=== PATIENT | male | born 1960 | race Hispanic/Latino ===

== ENCOUNTER 2018-02-17 10:11 | Emergency (ER) | payer BC, OTHER, SELFPAY ==
[2018-02-17] MEDS ORDERED: DOXYCYCLINE 100 MG CAP PO ONE (10:53)
[2018-02-17] MEDS ORDERED: LIDOCAINE 1% MPF 5 ML VIAL ONE (10:53)
--- NOTE | 2018-02-17 11:20 | ER ---
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 aj Transition of care: patient was not received from another setting of care. Onset of symptoms was February 17, 2018. Risk Assessment: Do you want to hurt yourself or someone else? Patient reports no desire to harm self or others. Initial Sepsis Screen: Does the patient meet any 2 criteria? No. Patient's initial sepsis screen is negative. Does the patient have a suspected source of infection? No. Patient's initial sepsis screen is negative. Care prior to arrival: None. 10:25 Method Of Arrival: Ambulatory aj 10:25 Acuity: HOPE 4 aj Triage Assessment: 10:26 General: Appears in no apparent distress. comfortable, Behavior is calm, cooperative, aj appropriate for age. Pain: Denies pain. Neuro: Level of Consciousness is awake, alert, obeys commands, Oriented to person, place, time, situation, Appropriate for age. Respiratory: Airway is patent Respiratory effort is even, unlabored, Respiratory pattern is regular, symmetrical. Derm: Skin is intact, is healthy with good turgor, Skin is pink, warm \T\ dry. normal. Injury Description: Foreign body is located palmar aspect of middle phalanx of right index finger. 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 - Social history:: Smoking status: Patient/guardian denies using tobacco. - Ebola Screening: : Patient negative for fever greater than or equal to 101.5 degrees Fahrenheit, and additional compatible Ebola Virus Disease symptoms Patient denies exposure to infectious person Patient denies travel to an Ebola-affected area in the 21 days before illness onset No symptoms or risks identified at this time. Screenin:30 Abuse screen: Denies threats or abuse. Nutritional screening: No deficits noted. rb1 Tuberculosis screening: No symptoms or risk factors identified. Fall Risk None identified. Assessment: 10:30 General: Appears in no apparent distress. comfortable, Behavior is calm, cooperative. rb1 Pain: Complains of pain in palmar aspect of middle phalanx of right index finger Pain currently is 3 out of 10 on a pain scale. Pain began 0900 this morning. Neuro: Level of Consciousness is awake, alert, obeys commands, Oriented to person, place, time, situation. Cardiovascular: Capillary refill < 3 seconds is brisk in bilateral fingers. Respiratory: Airway is patent Respiratory effort is even, unlabored, Respiratory pattern is regular, symmetrical. GI: No signs and/or symptoms were reported involving the gastrointestinal system. : No signs and/or symptoms were reported regarding the genitourinary system. Derm: Skin is pink, warm \T\ dry. Fish hook stuck in the right index finger. Musculoskeletal: Range of motion: intact in all extremities. 11:30 Reassessment: Patient appears in no apparent distress at this time. Patient and/or rb1 family updated on plan of care and expected duration. Pain level reassessed. Patient is alert, oriented x 3, equal unlabored respirations, skin warm/dry/pink. Vital Signs: 10:26 BP 148 / 95; Pulse 103; Resp 20; Temp 98.0; Pulse Ox 96% on R/A; Weight 113.4 kg; aj Height 6 ft. 0 in. (182.88 cm); 11:20 BP 146 / 91; Pulse 92; Resp 18; Pulse Ox 100% on R/A; rb1 10:26 Body Mass Index 33.91 (113.40 kg, 182.88 cm) aj ED Course: 10:14 Patient arrived in ED. as 10:14 Ted Ruiz MD is Private Physician. as 10:25 Triage completed. aj 10:27 Arm band placed on left wrist. Patient placed in an exam room. aj 10:28 [facility]C [facility] snw 10:28 Franck Amador MD is Attending Physician. snw 10:30 Patient has correct armband on for positive identification. Bed in low position. Call rb1 light in reach. Side rails up X 1. Pulse ox on. NIBP on. 10:32 Whitley Gonsales, RN is Primary Nurse. rb1 11:19 Ted Ruiz MD is Referral Physician. snw 11:45 No provider procedures requiring assistance completed. Patient did not have IV access rb1 during this emergency room visit. 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 Exp: rb1 02/23/2020. Lot #: [id number]. } Route: IM; Site: left deltoid; 11:41 Follow up: Response: Medication administered at discharge.; pt. has had the Tetnus shot rb1 in the past without complication. Intake: Outcome: 11:20 Discharge ordered by . snw 11:45 Patient left the ED. rb1 11:45 Discharged to home ambulatory, with family. rb1 11:45 Condition: stable 11:45 Discharge instructions given to patient, Instructed on discharge instructions, follow up and referral plans. medication usage, Demonstrated understanding of instructions, follow-up care, medications, Prescriptions given X 2. Signatures: Vilma Fenton, RN RN Jennifer Sandoval, MEDICAL TECHNICIAN ASSISTANT-C MEDICAL TECHNICIAN ASSISTANT-Csnw [place] Gar as Whitley Gonsales, RN RN rb1
--- NOTE | 2018-02-17 11:21 | EDPHYS ---
Physician Documentation [facility] Name: Best Tyler Age: 57 yrs Sex: Male : 1960 Arrival Date: 02/17/2018 Time: 10:14 Bed 16 Private MD: Ted Ruiz F ED Physician Franck Amador HPI: 02/17 11:24 This 57 yrs old Male presents to ER via Ambulatory with complaints of Foreign snw Body - Fish hook in finger. 11:24 The patient or guardian reports the patient has a suspected foreign body, right index snw finger. The reported likely foreign body is a fishhook. Onset: The symptoms/episode began/occurred suddenly, just prior to arrival. Current symptoms: none. Treatment Prior to Arrival: tried to remove, but couldn't get out. The patient has not experienced similar symptoms in the past. It is unknown whether or not the patient has recently seen a physician. 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 - Social history:: Smoking status: Patient/guardian denies using tobacco. - Ebola Screening: : Patient negative for fever greater than or equal to 101.5 degrees Fahrenheit, and additional compatible Ebola Virus Disease symptoms Patient denies exposure to infectious person Patient denies travel to an Ebola-affected area in the 21 days before illness onset No symptoms or risks identified at this time. ROS: 11:23 Constitutional: Negative for fever, chills, and weight loss, Eyes: Negative for injury, snw pain, redness, and discharge, ENT: Negative for injury, pain, and discharge, Neck: Negative for injury, pain, and swelling, Cardiovascular: Negative for chest pain, palpitations, and edema, Respiratory: Negative for shortness of breath, cough, wheezing, and pleuritic chest pain, Abdomen/GI: Negative for abdominal pain, nausea, vomiting, diarrhea, and constipation, Back: Negative for injury and pain, : Negative for injury, bleeding, discharge, and swelling, MS/Extremity: Negative for injury and deformity, Neuro: Negative for headache, weakness, numbness, tingling, and seizure, Psych: Negative for depression, anxiety, suicide ideation, homicidal ideation, and hallucinations. 11:23 Skin: Positive for puncture, fishhook. Exam: 11:23 Constitutional: This is a well developed, well nourished patient who is awake, alert, snw and in no acute distress. Head/Face: Normocephalic, atraumatic. Eyes: Pupils equal round and reactive to light, extra-ocular motions intact. Lids and lashes normal. Conjunctiva and sclera are non-icteric and not injected. Cornea within normal limits. Periorbital areas with no swelling, redness, or edema. ENT: Nares patent. No nasal discharge, no septal abnormalities noted. Tympanic membranes are normal and external auditory canals are clear. Oropharynx with no redness, swelling, or masses, exudates, or evidence of obstruction, uvula midline. Mucous membranes moist. Neck: Trachea midline, no thyromegaly or masses palpated, and no cervical lymphadenopathy. Supple, full range of motion without nuchal rigidity, or vertebral point tenderness. No Meningismus. Chest/axilla: Normal chest wall appearance and motion. Nontender with no deformity. No lesions are appreciated. Cardiovascular: Regular rate and rhythm with a normal S1 and S2. No gallops, murmurs, or rubs. Normal PMI, no JVD. No pulse deficits. Respiratory: Lungs have equal breath sounds bilaterally, clear to auscultation and percussion. No rales, rhonchi or wheezes noted. No increased work of breathing, no retractions or nasal flaring. Abdomen/GI: Soft, non-tender, with normal bowel sounds. No distension or tympany. No guarding or rebound. No evidence of tenderness throughout. Back: No spinal tenderness. No costovertebral tenderness. Full range of motion. MS/ Extremity: Pulses equal, no cyanosis. Neurovascular intact. Full, normal range of motion. Neuro: Awake and alert, GCS 15, oriented to person, place, time, and situation. Cranial nerves II-XII grossly intact. Motor strength 5/5 in all extremities. Sensory grossly intact. Cerebellar exam normal. Normal gait. Psych: Awake, alert, with orientation to person, place and time. Behavior, mood, and affect are within normal limits. 11:23 Skin: Appearance: normal except for affected area, injury, puncture(s), that are deep, of the right index finger, fishhook. Vital Signs: 10:26 BP 148 / 95; Pulse 103; Resp 20; Temp 98.0; Pulse Ox 96% on R/A; Weight 113.4 kg; aj Height 6 ft. 0 in. (182.88 cm); 11:20 BP 146 / 91; Pulse 92; Resp 18; Pulse Ox 100% on R/A; rb1 10:26 Body Mass Index 33.91 (113.40 kg, 182.88 cm) aj Procedures: 11:25 Foreign Body Removal: a fishhook, from the right finger, by needle, Dressing: none, The snw patient tolerated the removal well. MDM: 10:28 Patient medically screened. snw 11:24 Data reviewed: vital signs, nurses notes. Data interpreted: Pulse oximetry: on room air snw is 96 %. Interpretation: normal. Counseling: I had a detailed discussion with the patient and/or guardian regarding: the historical points, exam findings, and any diagnostic results supporting the discharge/admit diagnosis, the presence of at least one elevated blood pressure reading (>120/80) during this emergency department visit, the need for outpatient follow up, to return to the emergency department if symptoms worsen or persist or if there are any questions or concerns that arise at home. Special discussion: I discussed in detail with the patient the higher chance of wound infection based on his presenting history. Based on the history and exam findings, there is no indication for further emergent testing or inpatient evaluation. I discussed with the patient/guardian the need to see the primary care provider for further evaluation of the symptoms. 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 Exp: rb1 02/23/2020. Lot #: [id number]. } Route: IM; Site: left deltoid; 11:41 Follow up: Response: Medication administered at discharge.; pt. has had the Tetnus shot rb1 in the past without complication. Disposition: 15:57 Co-signature as Attending Physician, Franck Amador MD I agree with the assessment and kdr plan of care. Disposition: 02/17/18 11:20 Discharged to Home. Impression: Puncture wound with foreign body of right index finger without damage to nail - fishhook. - Condition is Stable. - Discharge Instructions: Puncture Wound, VIS, Tetanus, Diphtheria (Td) - CDC, Foreign Body. - Prescriptions for Doxycycline Hyclate 100 mg Oral Tablet - take 1 tablet by ORAL route every 12 hours; 20 tablet. Diclofenac Sodium 75 mg Oral Tablet Sustained Release - take 1 tablet by ORAL route 2 times per day; 30 tablet. - Medication Reconciliation Form, Thank You Letter, Antibiotic Education, Prescription Opioid Use form. - Follow up: Ted Ruiz MD; When: 2 - 3 days; Reason: Recheck today's complaints, Continuance of care, Re-evaluation by your physician. Follow up: Emergency Department; When: As needed; Reason: Worsening of condition. Signatures: Vilma Fenton, RN Franck Loagn MD MD [facility] Jennifer Ellison, PASSENGER SERVICE AGENT-C PASSENGER SERVICE AGENT-Csnw Whitley Gonsales RN RN rb1 Corrections: (The following items were deleted from the chart) 10:30 10:29 Tetanus-Diphtheria Toxoid Adult 0.5 ml IM once ordered. snw snw 11:45 11:20 02/17/2018 11:20 Discharged to Home. Impression: Puncture wound with foreign body rb1 of right index finger without damage to nail - fishhook. Condition is Stable. Forms are Medication Reconciliation Form, Thank You Letter, Antibiotic Education, Prescription Opioid Use. Follow up: Ted Ruiz; When: 2 - 3 days; Reason: Recheck today's complaints, Continuance of care, Re-evaluation by your physician. Follow up: Emergency Department; When: As needed; Reason: Worsening of condition. snw
[2018-02-17] MEDS ORDERED: TETANUS & DIPHTHERIA TOX,ADULT 0.5 ML VIAL ONE (11:35)
== END 2018-02-17 11:45 | disposition home or self-care (01) ==
LOC: ER 10:11
DX: S61.240A Puncture wound with foreign body of right index finger without damage to nail, initial encounter (principal); I10 Essential (primary) hypertension; E78.5 Hyperlipidemia, unspecified; Z79.82 Long term (current) use of aspirin
CPT/HCPCS: 90714; 99283

== ENCOUNTER 2023-08-17 06:00 | Inpatient (IN) | payer OTHER ==
--- OUTSIDE RECORDS SUMMARY | 2023-08-17 06:02 | XMS REPORT | Continuity of Care Document ---
Author Name Unknown Address [address] [place] [address] [facility] Address [address] [place] [address] Care Team Providers Care Associate Media Planner Name Role Phone Pcp, Patient Does Not Have A Primary Care Physic richard MINNIE BAUM Attending Clinician Unavailable Minnie Baum MD Attending Clinician Unknown, Attending Attending Clinician UnavailBarbra Nesbitt Attending Clinician BARBRA ZIMMERMAN Attending Clinician Unavailable Doctor Unassigned, Strang Attending Clinician U navailable Payers Payer Name Policy Type Policy Number Effective Date Expirati on Date Source [facility] [id number] 2023 00:00:00 Allergies, Adverse Reactions, Alerts Allergy Name Allergy Type Status Severity Reaction(s) Onset Date Inactive Date Treating Clinician Comments Source NO KNOWN ALLERGIE S Drug Class Active [facility] Social History Social Habit Start Date Stop Date Quantity Comments Source [facility] intake 2023-08-14 00:00:00 2023-08-14 00:00:00 Current drinker of alcohol (finding) [facility] History of Social function 2023-08-14 00:00:00 2023-08-14 00:00:00 [facility] Exposure to SARS-CoV-2 (event) 2022-10-31 00:00:00 2022-11-10 08:20:00 Not sure [facility] Tobacco use and exposure 2022-11-10 00:00:00 2022-11-10 00:00:00 Smokeless tobacco non-user [facility] Alcohol Comment 2022-11-10 00:00:00 2022-11-10 00:00:00 1 weekly [facility] Sex Ass[birth year] At 1960 00:00:00 1960 00:00:00 [facility] Smoking Status Start Date Stop Date Source Tobacco smoking consumption unknown [facility] Never smoked tobacco [facility] Medications Ordered Medication Name Filled Medication Name Start Date Stop Date Current Medication? Ordering Clinician Indication Dosage Frequency Signature (SIG) Comments Components Source benzonatate 100 mg capsule 08-14 00:00: 00 Yes [id number] 200mg Take 2 capsules by mouth every 8 (eight) hours as needed for Cough. [facility] promethazin e-dextromet horphan 6.25-15 mg/5 mL syrup 08-14 00:00: 00 Yes [id number] 5mL Take 5 mL by mouth 4 (four) times daily as needed for Cough. [facility] triamcinolo ne acetonide 0.1 % cream 08-14 00:00: 00 Yes [id number] Apply to area(s) 2 (two) times daily. [facility] atorvastati n 20 mg tablet 11-10 08:43: 47 11-10 00:00 :00 No 20mg Take 1 tablet by mouth at bedtime. [facility] losartan-hy drochloroth iazide 50-12.5 mg per tablet 11-10 08:43: 47 11-10 00:00 :00 No 1{tbl} Take 1 tablet by mouth in the morning. [facility] atorvastati n 20 mg tablet 11-10 08:43: 47 11-10 00:00 :00 No 20mg Take 1 tablet by mouth at bedtime. [facility] losartan-hy drochloroth iazide 50-12.5 mg per tablet 11-10 08:43: 47 11-10 00:00 :00 No 1{tbl} Take 1 tablet by mouth in the morning. [facility] atorvastati n 20 mg tablet 11-10 00:00: 00 Yes [id number] 20mg Take 1 tablet by mouth at bedtime. [facility] losartan-hy drochloroth iazide 50-12.5 mg per tablet 11-10 00:00: 00 Yes [id number] 1{tbl} Take 1 tablet by mouth in the morning. [facility] atorvastati n 20 mg tablet 11-10 00:00: 00 Yes [id number] 20mg Take 1 tablet by mouth at bedtime. [facility] losartan-hy drochloroth iazide 50-12.5 mg per tablet 11-10 00:00: 00 Yes [id number] 1{tbl} Take 1 tablet by mouth in the morning. [facility] atorvastati n 20 mg tablet 11-10 00:00: 00 Yes [id number] 20mg Take 1 tablet by mouth at bedtime. [facility] losartan-hy drochloroth iazide 50-12.5 mg per tablet 11-10 00:00: 00 Yes [id number] 1{tbl} Take 1 tablet by mouth in the morning. [facility] Vital Signs Vital Name Observation Time Observation Value Comments S julio Systolic blood pressure 2023-08-14 15:58:00 129 mm[Hg] [facility] Diastolic blood pressure 2023-08-14 15:58:00 87 mm[Hg] [facility] Heart rate 2023-08-14 15:57:00 116 /min [facility] Body temperature 2023-08-14 15:57:00 36.83 Fannie [facility] Respiratory rate 2023-08-14 15:57:00 17 /min [facility] Body weight 2023-08-14 15:57:00 117.028 kg [facility] BMI 2023-08-14 15:57:00 34.99 kg/m2 [facility] Oxygen saturation in Arterial blood by Pulse oximetry 2023-08-14 15:57:00 95 /min [facility] Systolic blood pressure 2022-11-10 13:32:00 119 mm[Hg] [facility] Diastolic blood pressure 2022-11-10 13:32:00 81 mm[Hg] [facility] Heart rate 2022-11-10 13:30:00 89 /min [facility] Body temperature 2022-11-10 13:30:00 36.56 Fannie [facility] Respiratory rate 2022-11-10 13:30:00 18 /min [facility] Body height 2022-11-10 13:30:00 182.9 cm [facility] Body weight 2022-11-10 13:30:00 117.572 kg [facility] BMI 2022-11-10 13:30:00 35.15 kg/m2 [facility] Oxygen saturation in Arterial blood by Pulse oximetry 2022-11-10 13:30:00 98 /min [facility] Procedures Procedure Date / Time Performed Performing Clinicia n Source POCT MOLECULAR FLU 2023-08-14 16:00:00 Unknown, Attend [facility] POCT SARS-COV-2 ANTIGEN (BINAX NOW) 2023-08-14 15:55:00 Te Maldonado [facility] ASSIGNMENT OF BENEFITS 2022-11-10 13:21:18 Docto r Unassigned, Strang [facility] Encounters Start Date/Time End Date/Time Encounter Type Admission Type Attending Clinicians Care Facility Care Department Encounter ID Source 2023-08-14 09:40:00 2023-08-14 10:22:21 Outpatient R MINNIE BAUM [facility] [id number] [facility] 2023-08-14 09:40:00 2023-08-14 10:22:21 Urgent Care Minnie Baum Unknown, Attending [facility]ISA [facility] [id number] [facility] 2022-11-10 08:30:00 2022-11-10 08:48:14 Office Visit Barbra Zimmerman [facility] [id number]..[id number] [facility] 2022-11-10 08:30:00 2022-11-10 08:48:14 Outpatient R BARBRA ZIMMERMAN [facility] [id number] [facility] 2022-11-10 00:00:00 2022-11-10 00:00:00 Orders Only Doctor Unassigned, Strang [facility] [id number]..[id number] [facility] Results Test Description Test Time Test Comments Results Result Co mments Source [facility] (BINAX NOW)2023-08-14 16:10:00* Test Item Value Reference Range Interpretation Comme nts POCT SARS-COV-2 ANTIGEN (vito t code = 47243-3) Not Detected Not Detected On board controls acceptable with C Line (test code = 3574) Yes Lab Interpretation (test cod e = 42132-9) Normal [facility]
[2023-08-17] MEDS ORDERED: METHYLPREDNISOLONE 125 MG INJ ONE (06:19)
[2023-08-17] MEDS ORDERED: ALBUTEROL 2.5 MG/3 ML NEB SOL ONE (06:27)
[2023-08-17] MEDS ORDERED: IPRATROPIUM BROM 0.5MG/2.5ML ONE ×2 (06:28→12:56)
[2023-08-17] MEDS ORDERED: DIPHENHYDRAMINE 50 MG/ML VIAL ONE (06:29)
[2023-08-17 06:35] LABS: Blood Gas Oxyhemoglobin 90.8 % (94-97); Blood O2 Saturation 93.3 % (92-98.5)
[2023-08-17 06:50] LABS: Absolute Lymphocytes (CBC) 4.1 K/uL (0.7-4.9); Hematocrit 49.3 % (39.6-49.0); Lymphocytes % 31.4 % (15.3-44.8); MCV 82.5 fL (80-100); MPV 8.5 fL (7.6-11.3); Platelets 228 thou/uL (152-406); RBC Red Blood Cell Count 5.97 M/uL (4.33-5.43)
[2023-08-17 07:06] LABS: Albumin 3.4 g/dL (3.4-5.0); Bilirubin Direct 0.2 mg/dL (0-0.2); Bilirubin Indirect, Calculated 0.5 mg/dL (0.2-0.8); Bilirubin Total 0.7 mg/dL (0.2-1.0); Potassium 3.7 mEq/L (3.5-5.1); Protein, Total 6.5 g/dL (6.4-8.2); Troponin High Sensitivity 5.8 pg/mL (<58.9)
[2023-08-17 07:10] LABS: Protime INR 1.31
--- NOTE | 2023-08-17 07:58 | RAD REPORT ---
EXAM DESCRIPTION: CT - Chest For Pe Angio - 08/17/2023 7:27 am CLINICAL HISTORY: CHEST PAIN COMPARISON: No comparisons TECHNIQUE: Thin axial CT images of the chest were obtained following administration of 100 mL Isovue 370 IV contrast. Multiplanar reconstructions, and maximum intensity projection reconstructions were generated and reviewed. Exam utilizes a protocol for optimal evaluation of pulmonary arterial tree. All CT scans are performed using dose optimization technique as appropriate and may include automated exposure control or mA/KV adjustment according to patient size. FINDINGS: Pulmonary arteries are normal. No emboli or other suspicious finding. No acute or signific ant aorta findings. No mass or infiltrate in the lung parenchyma. Decreased inspiratory effort with dependent atelectasis . Small bilateral layering pleural effusions. No pneumothorax. Heart is normal in size. Mildly prominent mediastinal and bilateral hilar lymph nodes, measuring up to 1.5 cm in short axis. N o chest wall mass or abnormal axilliary lymphadenopathy. IMPRESSION: No evidence of acute central pulmonary emboli. Small bilateral layering pleural effusions. Nonspecific mildly prominent mediastinal and hilar lymph nodes, suggest infectious or inflammatory et iology.
--- NOTE | 2023-08-17 08:09 | ER ---
Nurse's Notes [facility] Name: Best Tyler Age: 63 yrs Sex: Male : 1960 Arrival Date: 08/17/2023 Time: 06:00 Bed 4 Private MD: Diagnosis: Dyspnea;Pleural effusion in other conditions classified elsewhere;Chest pain on breathing;Hypoxemia Presentation: 08/17 06:20 Chief complaint: Patient states: had severe cough all last week, went to urgent care on tm6 Monday and received some prescription meds. On Monday broke out in hives, maybe from the meds from urgent care. At 0330 this morning started to have trouble breathing. At 0500 checked O2 at home, which read 89%. Coronavirus screen: Vaccine status: Patient reports receiving the 2nd dose of the covid vaccine. Ebola Screen: Patient negative for fever greater than or equal to 101.5 degrees Fahrenheit, and additional compatible Ebola Virus Disease symptoms Patient denies exposure to infectious person. Patient denies travel to an Ebola-affected area in the 21 days before illness onset. No symptoms or risks identified at this time. Initial Sepsis Screen: Does the patient meet any 2 criteria? HR > 90 bpm. Does the patient have a suspected source of infection? No. Patient's initial sepsis screen is negative. Risk Assessment: Do you want to hurt yourself or someone else? Patient reports no desire to harm self or others. Onset of symptoms was August 17, 2023 at 03:30. 06:20 Method Of Arrival: Ambulatory tm6 06:20 Acuity: HOPE 3 tm6 Triage Assessment: 06:24 General: Appears uncomfortable, Behavior is calm, cooperative. Pain: Denies pain. EENT: tm6 No signs and/or symptoms were reported regarding the EENT system. Neuro: Level of Consciousness is awake, alert, obeys commands, Oriented to person, place, time, situation. Cardiovascular: Capillary refill < 3 seconds Patient's skin is warm and dry. Rhythm is sinus tachycardia. Respiratory: Reports shortness of breath at rest cough that is non-productive, Airway is patent Respiratory effort is even, labored, Respiratory pattern is regular, symmetrical, Onset: The symptoms/episode began/occurred at an unknown time. the patient has moderate shortness of breath. GI: Abdomen is round non-distended. : No signs and/or symptoms were reported regarding the genitourinary system. Derm: No signs and/or symptoms reported regarding the dermatologic system. Musculoskeletal: No signs and/or symptoms reported regarding the musculoskeletal system. Historical: - Allergies: 06:24 Unknown HTN med; tm6 - PMHx: 06:24 Hyperlipidemia; TIA; Hypertensive disorder; tm6 - PSHx: 06:24 Vasectomy; tm6 - Immunization history:: Adult Immunizations up to date, Client reports receiving the 2nd dose of the Covid vaccine, Flu vaccine is not up to date. - Social history:: Smoking status: Patient denies any tobacco usage or history of. Patient uses alcohol, occasionally. - Family history:: not pertinent. Screenin:27 [facility] ED Fall Risk Assessment (Adult) History of falling in the last 3 months, tm6 including since admission No falls in past 3 months (0 pts). Abuse screen: Denies threats or abuse. Denies injuries from another. Nutritional screening: No deficits noted. Tuberculosis screening: No symptoms or risk factors identified. Assessment: 06:27 Reassessment: see triage assessment. tm6 15:00 Cardiovascular: No deficits noted. Respiratory: Airway is patent Breath sounds are ko1 clear bilaterally. 15:03 Cardiovascular: Rhythm is sinus tachycardia. ko1 Vital Signs: 06:20 BP 163 / 95; Pulse 120; Resp 17; Temp 97.6; Pulse Ox 98% on 2 lpm NC; Weight 116.57 kg; tm6 Height 6 ft. 0 in. ; Pain 0/10; 06:53 BP 130 / 93; Pulse 116; Resp 17; Pulse Ox 100% on R/A; tm6 06:20 Body Mass Index 34.86 (116.57 kg, 182.88 cm) tm6 06:20 Pain Scale: Adult tm6 ED Course: 06:06 Patient arrived in ED. gm2 06:08 Tera Goldstein MD is Attending Physician. sp4 06:15 Radiology exam delayed due to lab results not completed at this time. (BUN/Creatinine) eh4 IV insertion attempt and/or patient not having appropriate IV at this time. 06:24 Triage completed. tm6 06:24 Arm band placed on left wrist. tm6 06:27 XRAY CXR (1 view) In Process Unspecified. EDMS 06:27 Patient has correct armband on for positive identification. Bed in low position. Call tm6 light in reach. Side rails up X2. Provided Education on: plan of care. Client placed on continuous cardiac and pulse oximetry monitoring. NIBP monitoring applied. residential monitor on. Noise minimized. 06:27 No provider procedures requiring assistance completed. Inserted saline lock: 20 gauge tm6 in right antecubital area, using aseptic technique. 07:11 Claudia Ledesma RN is Primary Nurse. ko1 07:14 Attending Physician role handed off by Tera Goldstein MD solomon 07:14 Jesus Porter MD is Attending Physician. solomon 07:29 CT Chest For PE Angio In Process Unspecified. EDMS 08:07 Dann Jerez is Hospitalizing Provider. solomon 09:05 US Extremity Venous W Compression Greg In Process Unspecified. EDMS 09:21 Flu Sent. ap3 09:21 SARS RAPID Sent. ap3 11:43 Patient admitted, IV remains in place. ap3 Administered Medications: 06:15 Drug: Albuterol Inhalation 2.5 mg Inhalation every 20 minutes x3 Route: Inhalation; km8 06:15 Drug: Ipratropium Inhalation Aerosol 0.5 mg Inhalation once; Every 20 min for a total km8 of 3 treatments x3 Route: Inhalation; 06:35 Drug: MethylPrednisoLONE IVP 125 mg IVP once Route: IVP; Site: right antecubital; km8 09:31 Follow up: Response: No adverse reaction ap3 06:36 Drug: Albuterol Inhalation 2.5 mg Inhalation every 20 minutes x3 Route: Inhalation; km8 06:36 Drug: Ipratropium Inhalation Aerosol 0.5 mg Inhalation once; Every 20 min for a total km8 of 3 treatments x3 Route: Inhalation; 06:36 Drug: diphenhydrAMINE IVP 25 mg IVP once Route: IVP; Site: right antecubital; km8 09:31 Follow up: Response: No adverse reaction ap3 06:52 Drug: Ipratropium Inhalation Aerosol 0.5 mg Inhalation once; Every 20 min for a total tm6 of 3 treatments x3 Route: Inhalation; 07:22 Drug: Albuterol Inhalation 2.5 mg Inhalation every 20 minutes x3 Route: Inhalation; ko1 09:31 Drug: Famotidine IVP 20 mg IVP once; dilute with 10 mL 0.9% NaCl; give over 2 minutes ap3 Route: IVP; Site: left antecubital; 09:31 Drug: Aspirin PO Chewable Tablet 162 mg PO once Route: PO; ap3 09:31 Drug: levofloxacin IVPB 750 mg 150 ml IVPB once over 90 mins Volume: 150 ml; Route: ap3 IVPB; Infused Over: 90 mins; Site: right antecubital; Medication: 06:27 VIS not applicable for this client. tm6 Outcome: 08:08 Decision to Hospitalize by Provider. solomon 11:43 Admitted to ER Hold. Please see [facility] for further documentation. ap3 11:43 Condition: good 11:43 Discharge instructions given to patient, Instructed on the need for admit, 15:03 Admitted to Med/surg accompanied by tech, via wheelchair, room 408, with chart, Report ko1 called to YOLETTE Payton 15:19 Patient left the ED. ko1 Signatures: Dispatcher [employer] EDMS Jesus Porter MD MD cha Prokisch, Amanda RN RN ap3 Ivania Vasquez 4 Claudia Ledesma, RN RN ko1 Tera Goldstein MD MD sp4 Yolande Joiner 2 Cely Neff, RN RN km8 Chasity Naranjo RN RN tm6
--- NOTE | 2023-08-17 08:10 | EDPHYS ---
Physician Documentation [facility] Name: Best Tyler Age: 63 yrs Sex: Male : 1960 Arrival Date: 08/17/2023 Time: 06:00 Bed 4 Private MD: ED Physician Jesus Porter HPI: 08/17 06:08 This 63 yrs old Male presents to ER via Unassigned with complaints of sp4 Shortness Of Breath, Allergic Reaction. 06:18 63-year-old male presents with 1 week of worsening shortness of breath, without fever. sp4 Patient reports that he was at the urgent care clinic was prescribed benzonatate. Since then dyspnea became worse he developed some hives bilateral lower extremity and also was then developing moderate dyspnea with nonproductive cough.. Historical: - Allergies: 06:24 Unknown HTN med; tm6 - PMHx: 06:24 Hyperlipidemia; TIA; Hypertensive disorder; tm6 - PSHx: 06:24 Vasectomy; tm6 - Immunization history:: Adult Immunizations up to date, Client reports receiving the 2nd dose of the Covid vaccine, Flu vaccine is not up to date. - Social history:: Smoking status: Patient denies any tobacco usage or history of. Patient uses alcohol, occasionally. - Family history:: not pertinent. ROS: 06:19 Constitutional: Negative for fever, chills, and weight loss, positive dyspnea, positive sp4 dyspnea on exertion, positive nonproductive cough, positive hives 06:19 All other systems are negative, Exam: 06:19 Constitutional: This is a well developed, well nourished patient who is awake, alert, sp4 and in no acute distress. Head/Face: Normocephalic, atraumatic. Eyes: Pupils equal round and reactive to light, extra-ocular motions intact. Lids and lashes normal. Conjunctiva and sclera are not injected. Cornea within normal limits. Periorbital areas with no swelling, redness, or edema. ENT: Nares patent. No nasal discharge, no septal abnormalities noted. Tympanic membranes are normal and external auditory canals are clear. Oropharynx with no redness, swelling, or masses, exudates, or evidence of obstruction, uvula midline. Mucous membranes moist. Neck: Trachea midline, no thyromegaly or masses palpated, and no cervical lymphadenopathy. Supple, full range of motion without nuchal rigidity, or vertebral point tenderness. Chest/axilla: Normal chest wall appearance and motion. Nontender with no deformity. No lesions are appreciated. Cardiovascular: Regular rate and rhythm with a normal S1 and S2. No gallops, murmurs, or rubs. Normal PMI, no JVD. No pulse deficits. Respiratory: Lungs have equal breath sounds bilaterally, that of dyspnea, positive tachypnea, positive mild expiratory wheezes mostly left lung field, positive accessory muscle use, positive retractions Abdomen/GI: Soft, non-tender, with normal bowel sounds. No distension or tympany. No guarding or rebound. No evidence of tenderness throughout. Back: No spinal tenderness. No costovertebral tenderness. Skin: Warm, dry with normal turgor. Normal color with no rashes, no lesions, and no evidence of cellulitis. MS/ Extremity: Pulses equal, no cyanosis. Neurovascular intact. Full, normal range of motion. Neuro: Awake and alert, GCS 15, oriented to person, place, time, and situation. Cranial nerves II-XII grossly intact. Motor strength 5/5 in all extremities. Sensory grossly intact. Psych: Awake, alert, with orientation to person, place and time. Behavior, mood, and affect are within normal limits 06:46 ECG was reviewed by the Attending Physician. EKG time 0 623, sinus tachycardia at a sp4 rate of 119 Vital Signs: 06:20 BP 163 / 95; Pulse 120; Resp 17; Temp 97.6; Pulse Ox 98% on 2 lpm NC; Weight 116.57 kg; tm6 Height 6 ft. 0 in. ; Pain 0/10; 06:53 BP 130 / 93; Pulse 116; Resp 17; Pulse Ox 100% on R/A; tm6 06:20 Body Mass Index 34.86 (116.57 kg, 182.88 cm) tm6 06:20 Pain Scale: Adult tm6 MDM: 06:12 Patient medically screened. sp4 06:47 ED course: EXAM: XR Chest, 1 View CLINICAL HISTORY: The patient is 63 years old and is sp4 Male; CHEST PAIN TECHNIQUE: Frontal view of the chest. COMPARISON: No relevant prior studies available. FINDINGS: Lungs: Unremarkable. No consolidation. Pleural space: Unremarkable. No pneumothorax. Heart: Unremarkable. Mediastinum: Unremarkable. Normal mediastinal contour. Bones/joints: No acute findings. IMPRESSION: No acute findings in the chest.. 08:05 Differential diagnosis: Anemia asthma, Bronchitis CHF exacerbation, Chronic Obstructive solomon Pulmonary Disease pneumonia, Pneumothorax Psychogenic pulmonary edema, Pulmonary Embolism reactive airway disease, Sepsis Unstable Angina. Antibiotic administration: Levaquin given. Immunization status: Influenza vaccine: within last 5 years. Data reviewed: vital signs, nurses notes, lab test result(s), EKG, radiologic studies, CT scan, plain films. Consideration of Admission/Observation Patient was admitted/placed on observation. Escalation of care including admission/observation considered. I considered the following discharge prescriptions or medication management in the emergency department Medications were administered in the Emergency Department. See MAR. Independent interpretation of the following test(s) in the Emergency Department EKG: See my EKG interpretation above. Test considered but Not performed: Ultrasound no 2 d echo. Historians other than the Patient: Spouse/Significant Other: well informed. Care significantly affected by the following chronic conditions: Hypertension, tia, hyperlipidemia. Counseling: I had a detailed discussion with the patient and/or guardian regarding the historical points, exam findings, and any diagnostic results supporting the discharge/admit diagnosis, lab results, radiology results, the need for further work-up and treatment in the hospital. 08/17 06:13 Order name: BMP; Complete Time: :08/17 06:13 Order name: Blood Culture Adult (2) 08/17 06:13 Order name: CBC with Diff; Complete Time: 07:43 08/17 06:13 Order name: CPK; Complete Time: 07:08/17 06:13 Order name: D-Dimer; Complete Time: 07:43 08/17 06:13 Order name: Hepatic Function; Complete Time: 07:43 08/17 06:13 Order name: Lipase; Complete Time: 07:08/17 06:13 Order name: Magnesium; Complete Time: 07:08/17 06:13 Order name: NT PRO-BNP; Complete Time: 07:08/17 06:13 Order name: PT-INR; Complete Time: 07:43 08/17 06:13 Order name: Ptt, Activated; Complete Time: 07:08/17 06:13 Order name: Troponin HS; Complete Time: 07: [facility] 08/17 06:13 Order name: ABG; Complete Time: 06:59 [facility] 08/17 08:04 Order name: SARS RAPID [facility] 08/17 08:04 Order name: Flu [facility] 08/17 06:13 Order name: CT Chest For PE Angio; Complete Time: 08:09 [facility] 08/17 06:13 Order name: XRAY CXR (1 view) [facility] 08/17 07:43 Order name: US Extremity Venous W Compression Greg [facility] 08/17 06:13 Order name: Call RT; Complete Time: 06:36 [facility] 08/17 06:13 Order name: EKG; Complete Time: 06:14 [facility] 08/17 08:29 Order name: CONS Physician Consult [facility] 08/17 06:13 Order name: Cardiac monitoring; Complete Time: 06:26 [facility] 08/17 06:13 Order name: EKG - Nurse/Tech; Complete Time: 06:26 [facility] 08/17 06:13 Order name: IV Saline Lock; Complete Time: 06:26 [facility] 08/17 06:13 Order name: Labs collected and sent; Complete Time: 06:28 08/17 06:13 Order name: O2 Per Protocol; Complete Time: 06:26 [facility] 08/17 06:13 Order name: O2 Sat Monitoring; Complete Time: :26 EC:46 Rate is 119 beats/min. Rhythm is regular, Sinus tachycardia. QRS [place] is Normal. [place] sp4 interval is normal. QRS interval is normal. QT interval is normal. No Q waves. T waves are Normal. No ST changes noted. Clinical impression: No evidence of ischemia. Interpreted by me. Reviewed by me. Administered Medications: 06:15 Drug: Albuterol Inhalation 2.5 mg Inhalation every 20 minutes x3 Route: Inhalation; km8 06:15 Drug: Ipratropium Inhalation Aerosol 0.5 mg Inhalation once; Every 20 min for a total km8 of 3 treatments x3 Route: Inhalation; 06:35 Drug: MethylPrednisoLONE IVP 125 mg IVP once Route: IVP; Site: right antecubital; km8 09:31 Follow up: Response: No adverse reaction ap3 06:36 Drug: Albuterol Inhalation 2.5 mg Inhalation every 20 minutes x3 Route: Inhalation; km8 06:36 Drug: Ipratropium Inhalation Aerosol 0.5 mg Inhalation once; Every 20 min for a total km8 of 3 treatments x3 Route: Inhalation; 06:36 Drug: diphenhydrAMINE IVP 25 mg IVP once Route: IVP; Site: right antecubital; km8 09:31 Follow up: Response: No adverse reaction ap3 06:52 Drug: Ipratropium Inhalation Aerosol 0.5 mg Inhalation once; Every 20 min for a total tm6 of 3 treatments x3 Route: Inhalation; 07:22 Drug: Albuterol Inhalation 2.5 mg Inhalation every 20 minutes x3 Route: Inhalation; ko1 09:31 Drug: Famotidine IVP 20 mg IVP once; dilute with 10 mL 0.9% NaCl; give over 2 minutes ap3 Route: IVP; Site: left antecubital; 09:31 Drug: Aspirin PO Chewable Tablet 162 mg PO once Route: PO; ap3 09:31 Drug: levofloxacin IVPB 750 mg 150 ml IVPB once over 90 mins Volume: 150 ml; Route: ap3 IVPB; Infused Over: 90 mins; Site: right antecubital; Disposition Summary: 08/17/23 08:08 Hospitalization Ordered Notes: Hospitalization Status: Observation solomon Provider: Dann Jerez cha Condition: Stable solomon Problem: new solomon Symptoms: have improved solomon Bed/Room Type: Standard solomon Location: Telemetry/MedSurg (observation)(08/17/23 14:43) em1 Room Assignment: 408(08/17/23 14:43) em1 Diagnosis - Dyspnea solomon - Pleural effusion in other conditions classified elsewhere solomon - Chest pain on breathing solomon - Hypoxemia solomon Forms: - Medication Reconciliation Form solomon - SBAR form solomon - Leadership Thank You Letter solomon Signatures: Dispatcher [employer] Jesus Taylor MD MD cha Martinez, Eric em1 Vilma Nieves RN RN ap3 Benita Dhillon RN RN kb3 Claudia Ledesma, RN RN ko1 Tera Goldstein MD MD sp4 Cely Neff RN RN km8 Chasity Naranjo RN RN tm6 Corrections: (The following items were deleted from the chart) 10:19 08:08 Telemetry/MedSurg (observation) solomon kb3 10:19 08:08 solomon 3 14:43 10:19 [facility] ER HOLD kb3 em1 14:43 10:19 ERHOLD- kb3 em1
--- NOTE | 2023-08-17 08:28 | P.HP ---
Certification for Inpatient Patient admitted to: Inpatient With expected LOS: <2 Midnights Practitioner: I am a practitioner with admitting privileges, knowledge of patient current condition, hospital course, and medical plan of care. Services: Services provided to patient in accordance with Admission requirements found in Title 42 Section 412.3 of the Code of Federal Regulations Patient History Date of Service: 08/17/23 Reason for admission: Bilateral pleural effusions History of Present Illness: 63-year-old male with a past medical history of hypertension, hyperlipidemia, TIA, presents to the emergency room with shortness of breath. He reports shortness of breath started 1 week ago is progressively getting worse, report being treated at urgent care with benzonatate. He reported some hives bilateral lower extremity reports associated dyspnea with a productive cough. No reported chest pain, nausea vomiting diarrhea, fever, EKG 6 Rate is 119 beats/min. Rhythm is regular, Sinus tachycardia. QRS [place] is Normal. OR interval is normal. QRS interval is normal. QT interval is normal. No Q waves. T waves are Normal. No ST changes noted. Clinical impression: No evidence of ischemia. Treated in the emergency room with albuterol x 3, ipratropium x 3, Solu-Medrol, CTA of the chest IMPRESSION: No evidence of acute central pulmonary emboli. Small bilateral layering pleural effusions. Nonspecific mildly prominent mediastinal and hilar lymph nodes, suggest infectious or inflammatory etiology. Laboratory evaluation leukocytosis WBCs 13.0, no left shift elevated eosinophils 9.7 D-dimer 12,889, ABG pH 7.42, CO2 40.5, O2 69.2, Allergies Unknown HTN med Allergy (Uncoded 02/17/18 11:48) Unknown Review of Systems per HPI Physical Examination - Physical Exam General: Alert, Mild distress Neck: Supple, 2+ carotid pulse no bruit Respiratory: Expiratory wheezes, Other (Tachypnea) Capillary refill: <2 Seconds Gastrointestinal: Normal bowel sounds, Soft and benign Musculoskeletal: No clubbing, No swelling Integumentary: Rash(es) (geneneralized rash) - Studies Laboratory Data (last 24 hrs) 08/17/23 08/17/23 08/17/23 06:35 06:35 06:35 WBC 13.00 H Hgb 16.8 Hct 49.3 H Plt Count 228 PT 14.3 H INR 1.31 APTT 28.1 Sodium 136 Potassium 3.7 BUN 16 Creatinine 1.21 Glucose 150 H Magnesium 2.0 Total Bilirubin 0.7 AST 18 ALT 38 Alkaline Phosphatase 59 Lipase 37 Assessment and Plan - Plan Assessment plan Acute hypoxic respiratory failure likely secondary to viral illness Bilateral pleural effusions Respiratory O2 2 L keep sats greater 90%, pulmonary consult, Solu-Medrol, Lasix ordered 40 IV x 1, Levaquin daily presents to the emergency room with shortness of breath. He reports shortness of breath started 1 week ago is progressively getting worse, report being treated at urgent care with benzonatate. He reported some hives bilateral lower extremity reports associated dyspnea with a productive cough. No reported chest pain, nausea vomiting diarrhea, EKG 6 Rate is 119 beats/min. Rhythm is regular, Sinus tachycardia. QRS [place] is Normal. OR interval is normal. QRS interval is normal. QT interval is normal. No Q waves. T waves are Normal. No ST changes noted. Clinical impression: No evidence of ischemia. Treated in the emergency room with albuterol x 3, ipratropium x 3, Solu-Medrol, CTA of the chest IMPRESSION: No evidence of acute central pulmonary emboli. Small bilateral layering pleural effusions. Nonspecific mildly prominent mediastinal and hilar lymph nodes, suggest infe ctious or inflammatory etiology. Laboratory evaluation leukocytosis WBCs 13.0, no left shift elevated eosinophils 9.7 D-dimer 12,889, ABG pH 7.42, CO2 40.5, O2 69.2, Rash/hives IV steroids hypertension hyperlipidemia History TIA Full code Cardiac diet DVT Lovenox Discharge Plan: Home Plan to discharge in: 48 Hours - Advance Directives Does patient have a Living Will: No Does patient have a Durable POA for Healthcare: No - Code Status/Comfort Care Code Status: Full Code Critical Care: No Time Spent Managing Pts Care (In Minutes): 55
[2023-08-17] MEDS ORDERED: FUROSEMIDE 40 MG/4 ML VIAL IV ONE (08:30)
[2023-08-17] MEDS ORDERED: METHYLPREDNISOLONE 125 MG INJ IV ONE (08:30)
[2023-08-17] MEDS ORDERED: FAMOTIDINE 20 MG/2 ML VIAL IV ONE (09:22)
[2023-08-17] MEDS ORDERED: ASPIRIN 81 MG CHEWABLE TABLET ONE (09:22)
[2023-08-17] MEDS ORDERED: Levofloxacin 750mg IV 750 MG/150 ML BAG IV ONE (09:23)
[2023-08-17 09:49] LABS: SARS-CoV-2 Antigen Rapid Res Negative (Negative)
[2023-08-17 09:58] VITALS: BMI 34.8
--- NOTE | 2023-08-17 10:18 | RAD REPORT ---
EXAM DESCRIPTION: RAD - Chest Single View - 08/17/2023 6:25 am CLINICAL HISTORY: The patient is 63 years old and is Male; CHEST PAIN TECHNIQUE: Frontal view of the chest. COMPARISON: No relevant prior studies available. FINDINGS: Lungs: Unremarkable. No consolidation. Pleural space: Unremarkable. No pneumothorax. Heart: Unremarkable. Mediastinum: Unremarkable. Normal mediastinal contour. Bones/joints: No acute findings. IMPRESSION: No acute findings in the chest. Electronically signed by: Germain Carmona MD 08/17/2023 06:31 AM BODY WELDER Due to temporary technical issues with the PACS/Fluency reporting system, reports are being signed by the in house radiologist without review as a courtesy to ensure prompt reporting. The interpreting r adiologist is fully responsible for the content of the report.
[2023-08-17] MEDS ORDERED: ALBUTEROL 2.5 MG/3 ML NEB SOL NEB PRN (10:34)
[2023-08-17] MEDS: ENOXAPARIN 40 MG/0.4 ML SQ SCH (10:34)
[2023-08-17] MEDS ORDERED: ACETAMINOPHEN 500 MG TAB PO PRN (10:34)
[2023-08-17] MEDS ORDERED: ONDANSETRON 4 MG/2 ML VIAL IV PRN (10:34)
[2023-08-17] MEDS ORDERED: ALPRAZOLAM 0.25 MG TABLET PO PRN (10:34)
--- NOTE | 2023-08-17 10:42 | RAD REPORT ---
EXAM DESCRIPTION: US - Extrem Venous W Compress Greg - 08/17/2023 9:16 am CLINICAL HISTORY: Pain COMPARISON: None. TECHNIQUE: Real-time sonographic evaluation of the bilateral lower extremity deep venous systems was performed. FINDINGS: Normal compressibility, flow augmentation, phasic flow and spontaneous flow is identified in both the left and right lower extremity deep venous systems. No intraluminal filling defects seen. IMPRESSION: No DVT in either lower extremity.
[2023-08-17] MEDS ORDERED: ENOXAPARIN 40 MG/0.4 ML SQ ONE (11:31)
[2023-08-17] MEDS ORDERED: FUROSEMIDE 40 MG/4 ML VIAL ONE (11:31)
[2023-08-17] MEDS ORDERED: METHYLPREDNISOLONE 125 MG INJ IV SCH (12:00)
[2023-08-17] MEDS: IPRATROPIUM BROM 0.5MG/2.5ML NEB SCH ×2 (13:00→20:12)
--- NOTE | 2023-08-17 15:02 | P.CNS ---
Date of Consult: 08/17/23 Reason for Consult: Shortness of breath Chief Complaint: Bilateral pleural effusions History of Present Illness: PT is 63 yrs of age becam sick last week with cough an dcongestion. Went ot urgent care Tx with cough syrup. Admitted to ER with acute dyspnea. No fever or chills. HXof C cough for 3 months Tried Advair feeling a lot better Allergies Unknown HTN med Allergy (Uncoded 02/17/18 11:48) Unknown - Past Medical/Surgical History -: HTN -: Hyperlipidemia Past Surgical History: Patient denies surgical history Review of Systems 10-point ROS is otherwise unremarkable Physical Examination Temp Pulse Resp BP Pulse Ox 117 H 128/87 08/17/23 08:30 08/17/23 08:30 General: Alert, Oriented x3 HEENT: Atraumatic Neck: Supple Respiratory: Clear to auscultation bilaterally Cardiovascular: No edema, Regular rate/rhythm, Normal S1 S2 Gastrointestinal: Normal bowel sounds, Soft and benign Laboratory Data (last 24 hrs) 08/17/23 08/17/23 08/17/23 06:35 06:35 06:35 WBC 13.00 H Hgb 16.8 Hct 49.3 H Plt Count 228 PT 14.3 H INR 1.31 APTT 28.1 Sodium 136 Potassium 3.7 BUN 16 Creatinine 1.21 Glucose 150 H Magnesium 2.0 Total Bilirubin 0.7 AST 18 ALT 38 Alkaline Phosphatase 59 Lipase 37 - Problems (1) Shortness of breath Current Visit: Yes Status: Acute Plan: Age 63 AW acute shortness of breath. CT no PE minimla changes. No prev Hx of CAD or Lung issure. Mild increase in WBC. Sara viral bronchilolitis. Tx with Dulera and pred. DC am on Zithroomax, pred 10 BID for a week a Dulera. C/o C cough cw Flonase F/u with me 2-4 wks/ LAbs CXRY and CT reviewed/ ABG midl hypoxemia/ POt has imprive since admission
--- NOTE | 2023-08-17 16:25 | EKG ---
Test Date: 2023-08-17 Test Time: 06:23:20 Transition Mgr: JOHN MEASUREMENT RESULTS: Intervals: Rate: 119 MO: QRSD: 92 QT: 318 QTc: 447 [place]: P: MO: QRS: 157 T: 96 INTERPRETIVE STATEMENTS: Sinus rhythm normal ECG No previous ECG available for comparison Electronically Signed On 08-17-23 16:24:53 [employer] by Deangelo Valdez
[2023-08-17] MEDS: METHYLPREDNISOLONE 125 MG INJ IV SCH ×2 (17:37→23:36)
[2023-08-17] MEDS ORDERED: DIPHENHYDRAMINE 25 MG TAB/CAP PO ONE (19:14)
[2023-08-17] MEDS: DULERA 200/5 (MOMETASONE/FORMOTEROL) INHALER IH SCH (19:31)
[2023-08-17] MEDS ORDERED: predniSONE 20 MG TAB PO SCH (21:00)
[2023-08-18] MEDS: IPRATROPIUM BROM 0.5MG/2.5ML NEB SCH ×4 (01:22→20:13)
[2023-08-18] MEDS ORDERED: hydrOXYzine HCL 25 MG TAB PO ONE ×2 (01:29→08:42)
[2023-08-18] MEDS ORDERED: Levofloxacin 750mg IV 750 MG/150 ML BAG IV SCH (05:00)
[2023-08-18 05:29] LABS: Absolute Lymphocytes (CBC) 4.3 K/uL (0.7-4.9); Hematocrit 42.1 % (39.6-49.0); Lymphocytes % 25.6 % (15.3-44.8); MCV 82.1 fL (80-100); MPV 8.6 fL (7.6-11.3); Platelets 243 thou/uL (152-406); RBC Red Blood Cell Count 5.12 M/uL (4.33-5.43)
[2023-08-18] MEDS: METHYLPREDNISOLONE 125 MG INJ IV SCH (05:44)
[2023-08-18 05:55] LABS: Magnesium 2.4 mg/dL (1.6-2.4); Potassium 3.6 mEq/L (3.5-5.1)
--- NOTE | 2023-08-18 07:50 | P.PN ---
Subjective Date of Service: 08/18/23 Chief Complaint: Bilateral pleural effusions Physical Examination - Vital Signs Temperature: 97.9 F Blood Pressure: 145/73 Pulse: 107 Respirations: 18 Pulse Ox (%): 93 Assessment And Plan - Plan Assessment plan Acute hypoxic respiratory failure likely secondary to viral illness Bilateral pleural effusions Respiratory O2 2 L keep sats greater 90%, pulmonary consult, Solu-Medrol, Lasix ordered 40 IV x 1, Levaquin daily presents to the emergency room with shortness of breath. He reports shortness of breath started 1 week ago is progressively getting worse, report being treated at urgent care with benzonatate. He reported some hives bilateral lower extremity reports associated dyspnea with a productive cough. No reported chest pain, nausea vomiting diarrhea, EKG 6 Rate is 119 beats/min. Rhythm is regular, Sinus tachycardia. QRS Jamul is Normal. CA interval is normal. QRS interval is normal. QT interval is normal. No Q waves. T waves are Normal. No ST changes noted. Clinical impression: No evidence of ischemia. Treated in the emergency room with albuterol x 3, ipratropium x 3, Solu-Medrol, CTA of the chest IMPRESSION: No evidence of acute central pulmonary emboli. Small bilateral layering pleural effusions. Nonspecific mildly prominent mediastinal and hilar lymph nodes, suggest infectious or inflammatory etiology. Laboratory evaluation leukocytosis WBCs 13.0, no left shift elevated eosinophils 9.7 D-dimer 12,889, ABG pH 7.42, CO2 40.5, O2 69.2, Rash/hives IV steroids hypertension hyperlipidemia History TIA Full code Cardiac diet DVT Lovenox
--- NOTE | 2023-08-18 07:51 | P.DS ---
Admission Date: 08/17/23 Discharge Date: 08/18/23 Disposition: ROUTINE DISCHARGE Discharge Condition: FAIR Reason for Admission: Bilateral pleural effusions Brief History of Present Illness: 63-year-old male with a past medical history of hypertension, hyperlipidemia, TIA, presents to the emergency room with shortness of breath. He reports shortness of breath started 1 week ago is progressively getting worse, report being treated at urgent care with benzonatate. He reported some hives bilateral lower extremity reports associated dyspnea with a productive cough. No reported chest pain, nausea vomiting diarrhea, fever, EKG 6 Rate is 119 beats/min. Rhythm is regular, Sinus tachycardia. QRS [place] is Normal. [place] interval is normal. QRS interval is normal. QT interval is normal. No Q waves. T waves are Normal. No ST changes noted. Clinical impression: No evidence of ischemia. Treated in the emergency room with albuterol x 3, ipratropium x 3, Solu-Medrol, CTA of the chest IMPRESSION: No evidence of acute central pulmonary emboli. Small bilateral layering pleural effusions. Nonspecific mildly prominent mediastinal and hilar lymph nodes, suggest infectious or inflammatory etiology. Laboratory evaluation leukocytosis WBCs 13.0, no left shift elevated eosinophils 9.7 D-dimer 12,889, ABG pH 7.42, CO2 40.5, O2 69.2, Physical Examination - Physical Exam General: Alert, Neck: Supple, 2+ carotid pulse no bruit Respiratory: Equal unlabored Capillary refill: <2 Seconds Gastrointestinal: Normal bowel sounds, Soft and benign Musculoskeletal: No clubbing, No swelling Integumentary: Hives, rash(es) (geneneralized rash) Hospital Course: 63 year-old male patient presented with cough and shortness of breath. Was noted to have shortness of breath pneumonia, generalized hives. Was treated with IV antibiotics, IV steroids, nebulizers, oxygen, pulmonary consult. Condition improved with treatment plan. Stable for discharge home with follow-up appointment with primary care coty steve PROBLEM: Pneumonia Hives Discharge prescription azithromycin take daily until gone Pepcid daily for 30 days histamine keiry Albuterol inhaler Continue home medicines as previously prescribed GOAL: Clear understanding of disease process INSTRUCTIONS: Physician Discharge Instructions: -DC IV and DC home -Follow-up with PCP in 1 to 2 weeks -Please call Dr. Wells at [phone] if any questions regarding hospital stay -Please call nursing station at [phone] if any nursing or medication questions -Return to the emergency room if symptoms worsen Diet: ADA, low sodium Activity: Fall precautions DME:none Date Ordered: Name of Company: [employer] Services Needed: None Date or Referral: IMMUNIZATION Influenza Vaccine Indicated: Influenza Vaccine Given: Date Given: Pneumonia Vaccine Indicated: Pneumonia Vaccine Given: Date Given: Vital Signs/Physical Exam: Temp Pulse Resp BP Pulse Ox 97.9 F 107 H 18 145/73 H 93 08/18/23 07:50 08/18/23 07:50 08/18/23 07:50 08/18/23 07:50 08/18/23 07:50 Laboratory Data at Discharge: WBC 16.90 thou/uL (4.3-10.9) H 08/18/23 05:05 Hgb 14.4 g/dL (13.6-17.9) D 08/18/23 05:05 Hct 42.1 % (39.6-49.0) 08/18/23 05:05 Plt Count 243 thou/uL (152-406) 08/18/23 05:05 PT 14.3 SECONDS (9.5-12.5) H 08/17/23 06:35 INR 1.31 08/17/23 06:35 APTT 28.1 SECONDS (24.3-36.9) 08/17/23 06:35 Sodium 134 mEq/L (136-145) L 08/18/23 05:05 Potassium 3.6 mEq/L (3.5-5.1) 08/18/23 05:05 BUN 25 mg/dL (7-18) H 08/18/23 05:05 Creatinine 1.56 mg/dL (0.70-1.30) H 08/18/23 05:05 Glucose 289 mg/dL (74-106) H 08/18/23 05:05 Magnesium 2.4 mg/dL (1.6-2.4) 08/18/23 05:05 Total Bilirubin 0.7 mg/dL (0.2-1.0) 08/17/23 06:35 AST 18 U/L (15-37) 08/17/23 06:35 ALT 38 U/L (16-61) 08/17/23 06:35 Alkaline Phosphatase 59 U/L (45-117) 08/17/23 06:35 Lipase 37 U/L (13-75) 08/17/23 06:35 Home Medications: Atorvastatin Calcium 20 mg PO BEDTIME 08/17/23 Losartan/Hydrochlorothiazide [Losartan-Hctz 50-12.5 mg Tab] 12.5 - 50 mg PO DAILY 08/17/23 Azithromycin [Zithromax] 500 mg PO DAILY #7 tab 08/18/23 Pantoprazole Sodium [Protonix] 40 mg PO DAILY 30 Days #30 tab 08/18/23 New Medications: Pantoprazole Sodium [Protonix] 40 mg PO DAILY 30 Days #30 tab Azithromycin [Zithromax] 500 mg PO DAILY #7 tab Diet: AHA Activity: Weight bearing as tolerated Followup: Jake Vela MD [Primary Care Provider] - Time spent managing pt's care (in minutes): 55
[2023-08-18] MEDS: DULERA 200/5 (MOMETASONE/FORMOTEROL) INHALER IH SCH ×2 (09:00→21:05)
[2023-08-18] MEDS: ENOXAPARIN 40 MG/0.4 ML SQ SCH (09:08)
--- NOTE | 2023-08-18 09:23 | P.PN ---
Subjective Date of Service: 08/18/23 Chief Complaint: Possible viral bronchiolitis Subjective: Improving (Patient is improving doing well slight cough) Review of Systems Unremarkable Physical Examination - Vital Signs Temperature: 97.5 F Blood Pressure: 145/75 Pulse: 108 Respirations: 18 Pulse Ox (%): 95 - Physical Exam General: Alert, Oriented x3 HEENT: Atraumatic Neck: Supple Respiratory: Clear to auscultation bilaterally Assessment And Plan - Current Problems (Diagnosis) (1) Shortness of breath Current Visit: Yes Status: Acute Plan: I strongly suspect that patient may have an element of viral bronchiolitis can be discharged home on Dulera dose prednisone Zithromax and a PPI as he has a chronic cough with possible underlying gastroesophageal reflux vital signs are all stable patient is afebrile
[2023-08-18] MEDS ORDERED: ALBUTEROL INHALER 60 PUFF/8 GM IH PRN (12:05)
[2023-08-18] MEDS ORDERED: dexAMETHasone 4 MG/ML VIAL IV ONE ×2 (12:15→20:30)
[2023-08-18] MEDS ORDERED: NA CHLORIDE 0.9% 250 ML IV ONE (13:35)
[2023-08-18] MEDS: METOPROLOL TAR 50 MG TAB PO SCH ×2 (14:00→21:04)
[2023-08-18] MEDS: NA CHLORIDE 0.9% 1,000 ML IV SCH (14:18)
[2023-08-18] MEDS ORDERED: hydrOXYzine HCL 25 MG TAB PO PRN (20:29)
--- NOTE | 2023-08-18 20:43 | P.PN ---
Subjective Date of Service: 08/18/23 Subjective: No new changes, No C/O voiced, Improving persistent rash; not improved Review of Systems 10-point ROS is otherwise unremarkable Physical Examination - Vital Signs Temperature: 97.7 F Blood Pressure: 159/82 Pulse: 109 Respirations: 16 Pulse Ox (%): 96 - Physical Exam General: Alert, In no apparent distress, Oriented x3 HEENT: Atraumatic, PERRLA, EOMI Neck: Supple, JVD not distended Respiratory: Clear to auscultation bilaterally, Normal air movement Cardiovascular: Regular rate/rhythm, Normal S1 S2 Gastrointestinal: Normal bowel sounds, No tenderness Musculoskeletal: No tenderness Integumentary: Rash(es), Skin lesion, Erythema, Warmth Neurological: Normal speech, Normal tone, Normal affect Lymphatics: No axilla or inguinal lymphadenopathy - Studies Medications List Reviewed: Yes Assessment & Plan - Problems (Diagnosis) (1) Acute respiratory failure with hypoxemia Current Visit: Yes Status: Acute (2) Viral exanthem, unspecified Current Visit: Yes Status: Acute (3) Erythema annulare Current Visit: Yes Status: Acute - Plan Plan: 1. Continue with albuterol and Atrovent nebs prn 2. Continue with IV steroids 3. Atarax prn 4. Pulmonary follow-up 5. Room air O2 sats 6. Repeat chest x-ray in the morning 7. GI and DVT prophylaxis Discharge Plan: Home Plan to discharge in: 24 Hours - Advance Directives Does patient have a Living Will: No Does patient have a Durable POA for Healthcare: No - Code Status/Comfort Care Code Status: Full Code Critical Care: No Time Spent Managing PTS Care (In Minutes): 35
[2023-08-18] MEDS: predniSONE 20 MG TAB PO SCH (21:00)
[2023-08-19] MEDS: IPRATROPIUM BROM 0.5MG/2.5ML NEB SCH ×2 (02:23→07:56)
[2023-08-19] MEDS: NA CHLORIDE 0.9% 1,000 ML IV SCH (03:27)
[2023-08-19 06:42] LABS: Absolute Lymphocytes (CBC) 4.6 K/uL (0.7-4.9); Hematocrit 40.3 % (39.6-49.0); Lymphocytes % 38.7 % (15.3-44.8); MPV 8.6 fL (7.6-11.3); Platelets 243 thou/uL (152-406); RBC Red Blood Cell Count 4.92 M/uL (4.33-5.43)
[2023-08-19 07:04] LABS: Albumin 2.7 g/dL (3.4-5.0); Bilirubin Total 0.2 mg/dL (0.2-1.0); C-Reactive Protein 12.5 mg/L (<3.00); Magnesium 2.4 mg/dL (1.6-2.4); Potassium 4.6 mEq/L (3.5-5.1); Protein, Total 5.3 g/dL (6.4-8.2); Thyroid Stimulating Hormone 0.622 uIU/mL (0.358-3.740)
[2023-08-19] MEDS: ENOXAPARIN 40 MG/0.4 ML SQ SCH (07:51)
[2023-08-19] MEDS: METOPROLOL TAR 50 MG TAB PO SCH (07:51)
[2023-08-19] MEDS: predniSONE 20 MG TAB PO SCH (07:51)
[2023-08-19] MEDS: DULERA 200/5 (MOMETASONE/FORMOTEROL) INHALER IH SCH (07:52)
[2023-08-19 07:55] VITALS: BP 138/75
[2023-08-19 08:26] VITALS: TEMP 98.1
[2023-08-19 08:27] LABS: Blood Morphology Comment NOT SEEN (NOT SEEN); Platelet Estimate ADEQ; White Blood Cell Scan OK (OK)
[2023-08-19 08:42] VITALS: O2SAT 96
== END 2023-08-19 11:28 | disposition home or self-care (01) | DRG 189 ==
LOC: ER 06:00 → ERHOLD 09:04 → 4TH 15:10
PROVIDERS: ADMIT Hospitalist; ATTEND Hospitalist
PROC: 4A033R1 Measurement of Arterial Saturation, Peripheral, Percutaneous Approach (ICD-10-PCS; principal; 2023-08-17)
DX: J96.01 Acute respiratory failure with hypoxia (principal); J90 Pleural effusion, not elsewhere classified; L53.1 Erythema annulare centrifugum; J21.9 Acute bronchiolitis, unspecified; I10 Essential (primary) hypertension; E78.5 Hyperlipidemia, unspecified; B09 Unspecified viral infection characterized by skin and mucous membrane lesions; Z11.52 Encounter for screening for COVID-19
CPT/HCPCS: 36415; 36600; 71045; 71275; 80048; 80053; 80076; 82550; 82805; 83690; 83735; 83880; 84145; 84439; 84443; 84484; 85025; 85379; 85610; 85730; 86038; 86140; 87040; 87804; 87811; 93005; 93970; 94640; 94760; J1100; J1200; J1650; J1940; J2930; J3535; J7030; J7512; J7613; J7644; Q9967